=== PATIENT | male | born 1955 | race African-American/Black ===

== ENCOUNTER 2017-06-18 16:32 | Emergency (ER) | payer OTHER ==
[~2017-06-18] VITALS: Ht 170.2 cm; Wt 81.7 kg
[~2017-06-18 16:32] MED LIST: CIPRO500 MG PO; FLOMAX0.4 MG PO; HYDROCODONE-AP1 EAC6 PO; ONDANSETRON HCL4 M2 PO
[2017-06-18 18:00] LABS: URINE BILIRUBIN NEGATIVE (Negative); URINE BLOOD 3+ (Negative); URINE COLOR YELLOW; URINE GLUCOSE-RANDOM* NEGATIVE (Negative); URINE KETONES NEGATIVE (Negative); URINE NITRITE NEGATIVE (Negative); URINE PROTEIN (DIPSTICK) 1+ (Negative); URINE SPECIFIC GRAVITY 1.025 (1.003-1.035); URINE UROBILINOGEN 0.2 E.U./dl (0.2-1.0)
[2017-06-18 18:30] LABS: CASTS None Seen /LPF (None Seen); SQUAMOUS 0-3 Few /LPF (0-3)
[2017-06-18 18:31] LABS: BACTERIA 1-9 Few /HPF (None Seen); URINE RBC >20 Many /HPF (0-2); URINE WBC 0-5 Rare /HPF (0-5)
[2017-06-18 18:51] LABS: ABSOLUTE NEUTROPHILS 7.9 thou/uL (1.4-8.2); BASOPHILS 0.4 % (0.0-2.0); EOSINOPHILS 0.7 % (0.0-3.0); HEMATOCRIT 39.5 % (42.0-52.0); HEMOGLOBIN 13.3 gm/dL (14.0-18.0); LYMPHOCYTES 11.3 % (24.0-44.0); MCH 28.3 pg (26.0-34.0); MCHC 33.6 g/dL (28.0-37.0); MCV 84.1 fL (80.0-100.0); MONOCYTES 5.9 % (1.0-8.0); PLATELET COUNT 168 thou/uL (150-400); POLYS 81.7 % (36.0-66.0); RDW 15.1 % (10.5-14.5); WBC 9.6 thou/uL (4.0-11.0)
[2017-06-18 19:00] LABS: CALCIUM 9.1 mg/dL (8.5-10.1); CREATININE 1.4 mg/dL (0.7-1.3); POTASSIUM 3.9 mmol/L (3.5-5.1)
[2017-06-18 19:03] LABS: MANUAL DIFF NO
[2017-06-18] MEDS ORDERED: HYDROCODONE-AP1 EAC6 PO (19:10)
[2017-06-18] MEDS ORDERED: CIPRO500 MG PO (19:10)
[2017-06-18 19:15] VITALS: BP 125/88
== END 2017-06-18 19:11 | disposition home or self-care (01) ==
LOC: ER 16:32
PROVIDERS: Nurse Practitioner Family
DX: N39.0 Urinary tract infection, site not specified (principal); F10.99 Alcohol use, unspecified with unspecified alcohol-induced disorder

== ENCOUNTER 2017-06-22 12:30 | Inpatient (IN) | payer OTHER ==
[~2017-06-22] VITALS: Ht 177.8 cm; Wt 76.2 kg
--- NOTE | ~2017-06-22 | O ---
[facility] [place] [address] OPERATIVE REPORT Name: OWEN ALVAREZ Room #: 418-P [facility] [place] [place] .R.#: [id number] Admission: 06/22/17 Attend Phys: Saqib Qureshi MD Discharge: Date of : 57 Report #: [id number] THIS REPORT FOR: //name// CC: Saqib Lundberg DATE OF SERVICE: 06/23/2017 PREOPERATIVE DIAGNOSIS: Left distal ureteral stone. POSTOPERATIVE DIAGNOSIS: Left distal ureteral stone. SURGEON: Meri Perez MD [employer]ECTIVE [employer] SECTION: None. PROCEDURE PERFORMED: 1. Cystoscopy. 2. Left balloon dilation of the ureter. 3. Left ureteroscopy with holmium laser lithotripsy and basket stone extraction. 4. Left double-J ureteral stent placement. COMPLICATIONS: None. ESTIMATED BLOOD LOSS: None. SPECIMEN: Left ureteral stone. NARRATIVE OF EVENTS: After proper patient identification and informed consent was obtained, the patient was brought to the operative suite and anesthesia was induced. He was prepped and draped in the usual sterile fashion, in dorsal lithotomy position. After surgical timeout, we began with rigid cystoscopy. Anterior urethra was without abnormality. The prostatic urethra showed moderate hypertrophy. Upon entering the bladder, pancystoscopy was performed. Ureteral orifices were orthotopic bilaterally. We turned our attention to the left ureteral orifice and a sensor wire was advanced up to the renal pelvis under fluoroscopy. I then attempted to advance the semirigid ureteroscope; however, this could not move beyond the very narrow UVJ. I then used a 15 x 4 dilating balloon and performed balloon dilation of the ureteral orifice. Again, I advanced a semirigid ureteroscope. There was again a narrowed area a few centimeters above the UVJ. I could not bypass this with the scope. I also could not advance a balloon beyond that point. I did try to dilate again more proximally, but again met resistance in the distal part of the ureter. I then used the scope and advanced a second wire. I was able to advance the scope over the wire in a Seldinger technique and get above the narrowed area to identify [facility] [address] [place] [address] OPERATIVE REPORT Name: OWEN ALVAREZ Room #: 418-P [facility] [place] ..#: [id number] Admission: 06/22/17 Attend Phys: Saqib Qureshi MD Discharge: Date of : 57 Report #: [id number] the stone. There were 2 stones, one approximately 4 mm in size, one 3 mm in size. I fragmented this with the holmium laser and then basketed out all significant fragments. The ureter was wide open and patent above the area of narrowing and no further stone debris was remaining at the completion of the case. I withdrew the ureteroscope. I then used the remaining sensor wire to advance a 6 x 26 double-J ureteral stent. There was good curl of the stent in the renal pelvis as well as the bladder upon deployment. The stent was left on a dangle. The patient tolerated the procedure well and was transferred to the recovery area in stable condition. By: [id number] Meri Perez MD /nt
[2017-06-22 12:31] VITALS: BP 155/97
[2017-06-22 13:00] LABS: ABSOLUTE NEUTROPHILS 5.8 thou/uL (1.4-8.2); BASOPHILS 0.7 % (0.0-2.0); EOSINOPHILS 2.7 % (0.0-3.0); HEMATOCRIT 40.7 % (42.0-52.0); HEMOGLOBIN 13.3 gm/dL (14.0-18.0); MCH 27.5 pg (26.0-34.0); MCHC 32.7 g/dL (28.0-37.0); MCV 84.2 fL (80.0-100.0); MONOCYTES 10.4 % (1.0-8.0); PLATELET COUNT 170 thou/uL (150-400); POLYS 68.2 % (36.0-66.0); RBC 4.83 mil/uL (4.50-6.00); RDW 14.9 % (10.5-14.5); WBC 8.5 thou/uL (4.0-11.0)
[2017-06-22 13:01] LABS: MANUAL DIFF NO
[2017-06-22 13:08] LABS: CALCIUM 8.8 mg/dL (8.5-10.1); CREATININE 2.4 mg/dL (0.7-1.3)
[2017-06-22 13:14] LABS: ALBUMIN 3.9 g/dL (3.4-5.0); TOTAL BILIRUBIN 1.3 mg/dL (<0.1-1.0); TOTAL PROTEIN 8.5 g/dL (6.4-8.2)
[2017-06-22 14:23] VITALS: BP 137/81
[2017-06-22 15:18] VITALS: BP 128/80
[2017-06-22 20:16] VITALS: BP 149/98
[2017-06-23 04:04] VITALS: BP 85/44
[2017-06-23 04:07] LABS: HEMATOCRIT 36.9 % (42.0-52.0); MCH 27.6 pg (26.0-34.0); MCHC 32.6 g/dL (28.0-37.0); MCV 84.7 fL (80.0-100.0); RBC 4.35 mil/uL (4.50-6.00); RDW 14.9 % (10.5-14.5); WBC 9.1 thou/uL (4.0-11.0)
[2017-06-23 04:18] LABS: CALCIUM 8.1 mg/dL (8.5-10.1); CREATININE 2.3 mg/dL (0.7-1.3); POTASSIUM 4.2 mmol/L (3.5-5.1)
[2017-06-23 07:42] VITALS: BP 114/79
[2017-06-23 10:21] VITALS: BP 124/60
[2017-06-23 12:55] VITALS: BP 104/70
[2017-06-23 15:46] VITALS: BP 96/63
[2017-06-23 20:00] VITALS: BP 102/70
[2017-06-24 04:30] VITALS: BP 101/68
[2017-06-24 04:34] LABS: HEMATOCRIT 34.8 % (42.0-52.0); HEMOGLOBIN 11.5 gm/dL (14.0-18.0); MCH 27.9 pg (26.0-34.0); MCHC 32.9 g/dL (28.0-37.0); MCV 84.9 fL (80.0-100.0); RBC 4.1 mil/uL (4.50-6.00); RDW 14.7 % (10.5-14.5); WBC 6.7 thou/uL (4.0-11.0)
[2017-06-24 04:51] LABS: CALCIUM 8.1 mg/dL (8.5-10.1); CREATININE 1.9 mg/dL (0.7-1.3); POTASSIUM 4.4 mmol/L (3.5-5.1)
[2017-06-24 07:10] VITALS: BP 105/59
[2017-06-24] MEDS ORDERED: HYDROCODON-ACE1 EAC7 PO (09:18)
[2017-06-24] MEDS ORDERED: PHENAZOPYRIDIN100 M1 PO (09:24)
[2017-06-24 10:00] VITALS: BP 105/59
== END 2017-06-24 11:23 | disposition home or self-care (01) | DRG 669 ==
LOC: ER 12:30 → 4E 14:12 → EROBS 14:12 → 4E 15:28
PROVIDERS: Emergency Medicine; Hospitalist
PROC: 0TC78ZZ Extirpation of Matter from Left Ureter, Via Natural or Artificial Opening Endoscopic (ICD-10-PCS; principal; 2017-06-23)
PROC: 0T778DZ Dilation of Left Ureter with Intraluminal Device, Via Natural or Artificial Opening Endoscopic (ICD-10-PCS; principal; 2017-06-23)
PROC: BT1F1ZZ Fluoroscopy of Left Kidney, Ureter and Bladder using Low Osmolar Contrast (ICD-10-PCS; principal; 2017-06-23)
DX: N13.2 Hydronephrosis with renal and ureteral calculous obstruction (principal); Z79.899 Other long term (current) drug therapy; N17.0 Acute kidney failure with tubular necrosis
CPT/HCPCS: 10783; 50010; 50101; 50164; 50478; 51179; 51767; 56815; 62110; 62900; 70005

== ENCOUNTER → 2017-07-31 | Outpatient (CLI) | payer OTHER ==
[~2017-07-31] MED LIST changes: +HYDROCODON-ACE1 EAC7 PO; +PHENAZOPYRIDIN100 M1 PO
== END ==
LOC: ULTRA 08:28
DX: N20.0 Calculus of kidney (principal)

== ENCOUNTER 2020-12-28 14:36 | Emergency (ER) | payer OTHER ==
[~2020-12-28] VITALS: Ht 180.3 cm; Wt 78.9 kg
[2020-12-28 16:02] VITALS: BP 151/106
== END 2020-12-28 16:03 | disposition home or self-care (01) ==
LOC: ER 14:36
DX: S01.81XA Laceration without foreign body of other part of head, initial encounter (principal); W11.XXXA Fall on and from ladder, initial encounter; Y93.89 Activity, other specified; Y92.89 Other specified places as the place of occurrence of the external cause; Y99.8 Other external cause status